=== PATIENT | female | born 1980 | race Two or more races ===

== ENCOUNTER 2018-07-21 08:27 | Emergency (ER) | payer MEDICAID ==
[~2018-07-21] VITALS: Ht 152.4 cm; Wt 75.9 kg
--- NOTE | 2018-07-21 08:53 | NUR ---
JOSE MODI AT BEDSIDE.
--- NOTE | 2018-07-21 08:54 | NUR ---
PT TO ROOM 16 W/ C/O HAVING A MIGRAINE LATELY AND BEING DX WITH A BRAIN TUMOR IN 2013. ALSO STATES SHE IS GOING THROUGH WITHDRAWAL FROM ETOH AND IS SCARED, PT STATES SHE HAS BEEN UNABLE TO KEEP ANYTHING DOWN. ETOH ABUSE. DRINKS ETOH DAILY LAST USE YESTERDAY. PT RESTING ON GURNEY. WARM BLANKET PROVIDED. MONITORS APPLIED.
[2018-07-21] MEDS ORDERED: TRAZ-137 PO (08:56)
[2018-07-21] MEDS ORDERED: ONDANSETRON ODT 4 MG PO ONE (09:00)
[2018-07-21] MEDS ORDERED: LORazepam 1MG TABLET PO ONE (09:00)
[2018-07-21] MEDS ORDERED: LORazepam 1MG TABLET ONE (09:02)
[2018-07-21] MEDS ORDERED: ONDANSETRON ODT 4 MG ONE (09:02)
[2018-07-21 09:19] LABS: MICROSCOPIC AUTO
[2018-07-21 09:20] LABS: CULTURE INDICATED? YES
[2018-07-21 09:24] LABS: ALANINE AMINOTRANSFERASE 64 U/L (12-78); ALBUMIN 3.4 g/dL (3.4-5.0); ANION GAP 7 mmol/L (5-15); CHLORIDE 104 mmol/L (98-107); CREATININE 0.68 mg/dL (0.55-1.02)
[2018-07-21 09:29] LABS: ALKALINE PHOSPHATASE 110 U/L (45-117); BILIRUBIN,TOTAL 1.4 mg/dL (0.2-1.0); TOTAL PROTEIN 7.7 g/dL (6.4-8.2)
[2018-07-21 09:33] LABS: MEAN CORPUSCULAR HEMOGLOBIN 23.5 pg (27.0-34.8); MEAN CORPUSCULAR HGB CONC 31.5 g/dL (32.4-35.8); MEAN CORPUSCULAR VOLUME 74.4 fL (80-100); MEAN PLATELET VOLUME 7.7 fL (7.4-10.4); PLATELET COUNT 339 x10^3/uL (130-400); RED BLOOD COUNT 4.03 x10^6/uL (3.82-5.3); RED CELL DISTRIBUTION WIDTH 27.8 % (9.6-15.2)
[2018-07-21 09:55] LABS: BASOPHILS # (AUTO) 0.01 x10^3/uL (0-0.1); BASOPHILS % (AUTO) 0 % (0-1); EOSINOPHILS # (AUTO) 0.03 x10^3/uL (0-0.4); EOSINOPHILS % (AUTO) 0 % (1-7); LYMPHOCYTES % (AUTO) 24 % (22-44); MD MORPH REVIEW ONLY; MONOCYTES # (AUTO) 0.44 x10^3/uL (0.2-0.8); MONOCYTES % (AUTO) 7 % (2-9); NEUTROPHILS % (AUTO) 68 % (42-75)
[2018-07-21 09:56] LABS: <PLATELET ESTIMATE> ADEQUATE; <PLT MORPHOLOGY> NORMAL PLT MORPH; MICROCYTOSIS 1+; POLYCHROMASIA 1+
[2018-07-21 09:58] LABS: ANISOCYTOSIS 1+; HYPOCHROMIA 2+
--- NOTE | 2018-07-21 09:59 | NUR ---
PT RESTING ON GURNEY. NADN. [place].
--- NOTE | 2018-07-21 10:01 | NUR ---
PT CHART REVIEWED AND PLACED FOR RECHECK.
[2018-07-21 10:28] VITALS: BP 137/52
--- NOTE | 2018-07-21 10:29 | NUR ---
PT RESTING ON GURNEY. NADN. [place].
--- NOTE | 2018-07-21 10:43 | NUR ---
MD at bedside. Education provided regarding need for ad copy writer. Patient expressed understanding. Follow up materials and information about primary care office provided. Patient up for discharge.
== END 2018-07-21 11:12 | disposition home or self-care (01) ==
LOC: ED 10:15
DX: K29.20 Alcoholic gastritis without bleeding (principal); F10.20 Alcohol dependence, uncomplicated; R10.84 Generalized abdominal pain; R11.2 Nausea with vomiting, unspecified; D64.9 Anemia, unspecified; N39.0 Urinary tract infection, site not specified; R51 Headache
CPT/HCPCS: 36415; 74021; 80053; 81001; 83690; 84703; 85025; 87086; 99284; Q0162

== ENCOUNTER 2018-08-29 07:05 | Inpatient (IN) | payer MEDICAID ==
[~2018-08-29] VITALS: Ht 152.4 cm; Wt 74.6 kg
[~2018-08-29 07:05] MED LIST: TRAZ-137 PO
--- NOTE | 2018-08-29 07:56 | NUR ---
[facility]
--- NOTE | 2018-08-29 08:27 | NUR ---
Pt presents from home for ETOH withdrawal. Pt states nomrally drink 6+ [employer] malt liqour. Pt states last drink at 2100 last night. Pt shaking and lightheaded at this time. Pt states nausea and vomiting x week+
[2018-08-29] MEDS ORDERED: LORazepam 2 MG/ML, 1ML IVPush ONE (08:30)
[2018-08-29] MEDS ORDERED: ONDANSETRON 2MG/ML, 2ML IVPush ONE (08:30)
[2018-08-29] MEDS ORDERED: THIAMINE 100 MG in SODIUM CHLORIDE 0.9% 50 ML IVPB ONE (08:30)
[2018-08-29] MEDS ORDERED: SODIUM CHLORIDE 0.9% 1,000ML IVBOLUS ONE (08:30)
[2018-08-29] MEDS ORDERED: SODIUM CHLORIDE FLUSH 10ML SYR IVF ONE (08:30)
[2018-08-29] MEDS ORDERED: ONDANSETRON 2MG/ML, 2ML ONE (08:31)
[2018-08-29] MEDS ORDERED: LORazepam 2 MG/ML, 1ML ONE (08:32)
[2018-08-29 08:47] LABS: MEAN CORPUSCULAR HEMOGLOBIN 24.6 pg (27.0-34.8); MEAN CORPUSCULAR HGB CONC 31.4 g/dL (32.4-35.8); MEAN CORPUSCULAR VOLUME 78.1 fL (80-100); MEAN PLATELET VOLUME 6.8 fL (7.4-10.4); PLATELET COUNT 267 x10^3/uL (130-400); RED BLOOD COUNT 3.68 x10^6/uL (3.82-5.3); RED CELL DISTRIBUTION WIDTH 27.4 % (9.6-15.2)
[2018-08-29 08:48] LABS: ALBUMIN 3.2 g/dL (3.4-5.0); ANION GAP 9 mmol/L (5-15); CALCIUM 8.1 mg/dL (8.5-10.1); CHLORIDE 105 mmol/L (98-107)
[2018-08-29 08:54] LABS: ALANINE AMINOTRANSFERASE 69 U/L (12-78); ALKALINE PHOSPHATASE 110 U/L (45-117); BILIRUBIN,TOTAL 1.1 mg/dL (0.2-1.0); CREATININE 0.79 mg/dL (0.55-1.02); TOTAL PROTEIN 7.5 g/dL (6.4-8.2)
[2018-08-29 08:59] LABS: MD YES
[2018-08-29 09:06] LABS: LYMPH#(MANUAL) 0.78 x10^3/uL (1-3.4); LYMPHS% (MANUAL) 19 % (22-44); MONOS#(MANUAL) 0.21 x10^3/uL (0.3-2.7); MONOS% (MANUAL) 5 % (2-9); SEG#(MANUAL) 3.12 x10^3/uL (1.8-6.8); SEGS% (MANUAL) 76 % (42-75)
[2018-08-29 09:07] LABS: <PLATELET ESTIMATE> ADEQUATE; <PLT MORPHOLOGY> NORMAL PLT MORPH; ANISOCYTOSIS 1+; HYPOCHROMIA 2+; MICROCYTOSIS 1+; POLYCHROMASIA 1+; TARGET CELLS 1+
[2018-08-29] MEDS ORDERED: SODIUM CHLORIDE 0.9% 1,000 ML IV ONE (10:09)
--- NOTE | 2018-08-29 10:16 | NUR ---
PT WITH [place], DENIED BY [employer] AT [facility] AND [facility] AT [facility]
[2018-08-29] MEDS ORDERED: ONDANSETRON ODT 4 MG PO PRN (10:30)
[2018-08-29] MEDS ORDERED: ONDANSETRON 2MG/ML, 2ML IVPush PRN (10:30)
[2018-08-29] MEDS ORDERED: POLYETHYLENE GLYCOL 17 GM PACKET PO PRN (10:30)
[2018-08-29] MEDS ORDERED: LORazepam 1MG TABLET PO PRN ×3 (10:30)
[2018-08-29] MEDS ORDERED: LABETALOL 5 MG/ML SYRINGE IV PRN (10:30)
[2018-08-29] MEDS ORDERED: LORazepam 2 MG/ML, 1ML IV PRN ×5 (10:30)
[2018-08-29] MEDS ORDERED: SODIUM CHLORIDE FLUSH 10ML SYR IVF PRN (10:30)
[2018-08-29 10:53] LABS: FREE T4 (FREE THYROXINE) 0.7 ng/dL (0.76-1.46)
[2018-08-29 11:00] VITALS: BP 120/71
[2018-08-29] MEDS: ENOXAPARIN 40 MG/0.4 ML SQ SCH (11:50)
[2018-08-29 14:00] VITALS: BP 146/87
[2018-08-29 21:00] VITALS: BP 128/85
[2018-08-29] MEDS: LORazepam 0.5MG TABLET PO PRN (21:19)
[2018-08-30 01:07] VITALS: BP 126/84
[2018-08-30] MEDS: LORazepam 0.5MG TABLET PO PRN ×2 (05:23→10:49)
[2018-08-30 06:19] LABS: CHLORIDE 107 mmol/L (98-107)
[2018-08-30 06:21] LABS: MEAN CORPUSCULAR HEMOGLOBIN 24.8 pg (27.0-34.8); MEAN CORPUSCULAR HGB CONC 30.9 g/dL (32.4-35.8); MEAN CORPUSCULAR VOLUME 80.3 fL (80-100); MEAN PLATELET VOLUME 7.5 fL (7.4-10.4); PLATELET COUNT 246 x10^3/uL (130-400); RED BLOOD COUNT 3.53 x10^6/uL (3.82-5.3); RED CELL DISTRIBUTION WIDTH 27.5 % (9.6-15.2)
[2018-08-30 06:34] LABS: ALANINE AMINOTRANSFERASE 67 U/L (12-78); ALBUMIN 2.8 g/dL (3.4-5.0); ALKALINE PHOSPHATASE 108 U/L (45-117); ANION GAP 7 mmol/L (5-15); BILIRUBIN,TOTAL 0.9 mg/dL (0.2-1.0); CALCIUM 7.4 mg/dL (8.5-10.1); CREATININE 0.71 mg/dL (0.55-1.02); TOTAL PROTEIN 6.8 g/dL (6.4-8.2)
[2018-08-30 06:42] LABS: MD YES
[2018-08-30 06:44] LABS: BASOS#(MANUAL) 0.04 x10^3/uL (0-0.1); BASOS% (MANUAL) 1 % (0-1); LYMPH#(MANUAL) 1.42 x10^3/uL (1-3.4); LYMPHS% (MANUAL) 33 % (22-44); MONOS#(MANUAL) 0.26 x10^3/uL (0.3-2.7); MONOS% (MANUAL) 6 % (2-9); SEG#(MANUAL) 2.58 x10^3/uL (1.8-6.8); SEGS% (MANUAL) 60 % (42-75)
[2018-08-30 06:45] LABS: <PLATELET ESTIMATE> ADEQUATE; <PLT MORPHOLOGY> NORMAL PLT MORPH; ANISOCYTOSIS 1+; HYPOCHROMIA 2+; MICROCYTOSIS 1+; POLYCHROMASIA 1+
[2018-08-30] MEDS ORDERED: POTASSIUM CHLORIDE 20 MEQ TAB.ER.PRT PO ONE ×3 (07:00→14:30)
[2018-08-30 07:32] VITALS: BP 126/84
[2018-08-30] MEDS ORDERED: MAGNESIUM SULFATE PMX 2GM/50ML 50 ML IV ONE (08:30)
[2018-08-30] MEDS: SENNA/DOCUSATE TABLET PO SCH (09:11)
[2018-08-30] MEDS: IRON SUCROSE COMPLEX 100MG/5ML IV SCH (09:11)
[2018-08-30] MEDS: ENOXAPARIN 40 MG/0.4 ML SQ SCH (11:39)
[2018-08-30 12:05] VITALS: BP 145/83
[2018-08-30] MEDS: LORazepam 1MG TABLET PO PRN (17:46)
[2018-08-30] MEDS: TEMAZEPAM 15 MG CAPSULE PO PRN (20:50)
[2018-08-30 20:53] VITALS: BP 115/77
[2018-08-31 01:24] VITALS: BP 103/68
[2018-08-31 07:13] VITALS: BP 117/81
[2018-08-31] MEDS: SENNA/DOCUSATE TABLET PO SCH (08:07)
[2018-08-31] MEDS: IRON SUCROSE COMPLEX 100MG/5ML IV SCH (08:40)
[2018-08-31] MEDS: LORazepam 1MG TABLET PO PRN (08:40)
[2018-08-31 08:42] LABS: MEAN CORPUSCULAR HEMOGLOBIN 24.5 pg (27.0-34.8); MEAN CORPUSCULAR HGB CONC 30.3 g/dL (32.4-35.8); MEAN CORPUSCULAR VOLUME 80.7 fL (80-100); MEAN PLATELET VOLUME 7.3 fL (7.4-10.4); PLATELET COUNT 234 x10^3/uL (130-400); RED BLOOD COUNT 3.44 x10^6/uL (3.82-5.3); RED CELL DISTRIBUTION WIDTH 26.9 % (9.6-15.2)
[2018-08-31 08:51] LABS: ALBUMIN 2.7 g/dL (3.4-5.0); ANION GAP 4 mmol/L (5-15); CALCIUM 7.6 mg/dL (8.5-10.1); CHLORIDE 110 mmol/L (98-107)
[2018-08-31 08:55] LABS: ALANINE AMINOTRANSFERASE 78 U/L (12-78); ALKALINE PHOSPHATASE 100 U/L (45-117); BILIRUBIN,TOTAL 0.5 mg/dL (0.2-1.0); CREATININE 0.64 mg/dL (0.55-1.02); TOTAL PROTEIN 6.4 g/dL (6.4-8.2)
[2018-08-31 09:35] LABS: BASOPHILS % (AUTO) 0 % (0-1); EOSINOPHILS # (AUTO) 0.04 x10^3/uL (0-0.4); EOSINOPHILS % (AUTO) 1 % (1-7); LYMPHOCYTES # (AUTO) 1.45 x10^3/uL (1-3.4); LYMPHOCYTES % (AUTO) 25 % (22-44); MD SCAN; MONOCYTES # (AUTO) 0.65 x10^3/uL (0.2-0.8); MONOCYTES % (AUTO) 11 % (2-9); NEUTROPHILS # (AUTO) 3.64 x10^3/uL (1.8-6.8); NEUTROPHILS % (AUTO) 63 % (42-75)
[2018-08-31] MEDS: ENOXAPARIN 40 MG/0.4 ML SQ SCH (11:44)
[2018-08-31 12:32] VITALS: BP 112/75
[2018-08-31 19:52] VITALS: BP 126/85
[2018-08-31] MEDS: TEMAZEPAM 15 MG CAPSULE PO PRN (22:23)
[2018-09-01 02:43] VITALS: BP 107/70
[2018-09-01 05:34] LABS: MEAN CORPUSCULAR HEMOGLOBIN 25.3 pg (27.0-34.8); MEAN CORPUSCULAR HGB CONC 30.7 g/dL (32.4-35.8); MEAN CORPUSCULAR VOLUME 82.2 fL (80-100); MEAN PLATELET VOLUME 8.1 fL (7.4-10.4); PLATELET COUNT 240 x10^3/uL (130-400); RED BLOOD COUNT 3.49 x10^6/uL (3.82-5.3); RED CELL DISTRIBUTION WIDTH 26.7 % (9.6-15.2)
[2018-09-01 05:37] LABS: ALBUMIN 2.6 g/dL (3.4-5.0); CHLORIDE 110 mmol/L (98-107)
[2018-09-01 05:43] LABS: ALANINE AMINOTRANSFERASE 70 U/L (12-78); ALKALINE PHOSPHATASE 107 U/L (45-117); ANION GAP 6 mmol/L (5-15); BILIRUBIN,TOTAL 0.4 mg/dL (0.2-1.0); CALCIUM 8.1 mg/dL (8.5-10.1); CREATININE 0.64 mg/dL (0.55-1.02); TOTAL PROTEIN 6.4 g/dL (6.4-8.2)
[2018-09-01 06:32] LABS: MD YES
[2018-09-01 06:34] LABS: <PLATELET ESTIMATE> ADEQUATE; <PLT MORPHOLOGY> NORMAL PLT MORPH; ANISOCYTOSIS 1+; HYPOCHROMIA 1+; LYMPH#(MANUAL) 1.38 x10^3/uL (1-3.4); LYMPHS% (MANUAL) 17 % (22-44); MICROCYTOSIS 1+; MONOS#(MANUAL) 0.97 x10^3/uL (0.3-2.7); MONOS% (MANUAL) 12 % (2-9); POLYCHROMASIA 1+; SEG#(MANUAL) 5.75 x10^3/uL (1.8-6.8); SEGS% (MANUAL) 71 % (42-75)
[2018-09-01] MEDS ORDERED: NEUTRA PHOS K 250 MG TABLET PO SCH (09:00)
== END 2018-09-01 08:11 | disposition left against medical advice (07) | DRG 894 ==
LOC: ED 09:18 → EDIP 10:25 → 4EST 10:54
PROVIDERS: ADMIT Hospitalist; ATTEND Hospitalist
DX: F10.239 Alcohol dependence with withdrawal, unspecified (principal); E87.6 Hypokalemia; D50.0 Iron deficiency anemia secondary to blood loss (chronic); F17.200 Nicotine dependence, unspecified, uncomplicated; F41.9 Anxiety disorder, unspecified; Z53.21 Procedure and treatment not carried out due to patient leaving prior to being seen by health care provider; G43.909 Migraine, unspecified, not intractable, without status migrainosus; R74.0 Nonspecific elevation of levels of transaminase and lactic acid dehydrogenase [LDH]; Z98.84 Bariatric surgery status
CPT/HCPCS: 36415; 80053; 80307; 82728; 83540; 83550; 83690; 83735; 84100; 84439; 84443; 84703; 85025; 93005; 96361; 96374; 96375; 99285; G0378; J1650; J1756; J2405; J3411; Q0162; J2060; J3475; J7030

== ENCOUNTER 2018-10-13 04:57 | Inpatient (IN) | payer MEDICAID ==
[~2018-10-13] VITALS: Ht 152.4 cm; Wt 83.2 kg
--- NOTE | 2018-10-13 05:11 | NUR ---
JENNIFER LENZ WITH REPORTS OF A SEIZURE AROUND 0415 THIS MORNING THAT LASTED APPROX 15-20 SECONDS, WITNESSED BY BOYFRIEND. BF REPORTS PT WAS IN BED AND DID NOT FALL OR HIT HER HEAD. PT HAS HX OF ETOH ABUSE AND REPORTS THAT SHE HAS SEIZUES WHEN SHE IS WITHDRAWLING FROM ALCOHOL. PT ALERT AND ORIENTED X [address] PT ATTACHED TO ALL MONITOR, CALL LIGHT WITHIN REACH. SEIZURE PRECAUTIONS IN PLACE.
[2018-10-13] MEDS ORDERED: LORazepam 2 MG/ML, 1ML ONE ×2 (05:18→07:32)
[2018-10-13] MEDS ORDERED: THIAMINE 100 MG/ML, 2ML ONE (05:19)
[2018-10-13] MEDS ORDERED: SODIUM CHLORIDE FLUSH 10ML SYR IVF ONE (05:30)
[2018-10-13] MEDS ORDERED: LORazepam 2 MG/ML, 1ML IVPush ONE ×2 (05:30→07:00)
[2018-10-13] MEDS ORDERED: THIAMINE 100 MG/ML, 2ML IM ONE (05:30)
[2018-10-13 06:09] LABS: ALBUMIN 3.4 g/dL (3.4-5.0); ANION GAP 13 mmol/L (5-15); CALCIUM 8.2 mg/dL (8.5-10.1); CHLORIDE 104 mmol/L (98-107)
--- NOTE | 2018-10-13 06:09 | NUR ---
pt resting on gurney. pt is A+O to person, place and situation at this time. boyfriend at bedside
[2018-10-13 06:15] LABS: ALANINE AMINOTRANSFERASE 123 U/L (12-78); ALKALINE PHOSPHATASE 145 U/L (45-117); BILIRUBIN,TOTAL 1.6 mg/dL (0.2-1.0); CREATININE 0.82 mg/dL (0.55-1.02); MEAN CORPUSCULAR HEMOGLOBIN 27.2 pg (27.0-34.8); MEAN CORPUSCULAR HGB CONC 32.2 g/dL (32.4-35.8); MEAN CORPUSCULAR VOLUME 84.5 fL (80-100); MEAN PLATELET VOLUME 7.4 fL (7.4-10.4); PLATELET COUNT 202 x10^3/uL (130-400); RED BLOOD COUNT 3.87 x10^6/uL (3.82-5.3); RED CELL DISTRIBUTION WIDTH 28.5 % (9.6-15.2); TOTAL PROTEIN 7.9 g/dL (6.4-8.2)
[2018-10-13 06:33] LABS: BASOPHILS % (AUTO) 0 % (0-1); EOSINOPHILS # (AUTO) 0.01 x10^3/uL (0-0.4); EOSINOPHILS % (AUTO) 0 % (1-7); LYMPHOCYTES # (AUTO) 0.71 x10^3/uL (1-3.4); LYMPHOCYTES % (AUTO) 19 % (22-44); MD SCAN; MONOCYTES # (AUTO) 0.46 x10^3/uL (0.2-0.8); MONOCYTES % (AUTO) 12 % (2-9); NEUTROPHILS # (AUTO) 2.62 x10^3/uL (1.8-6.8); NEUTROPHILS % (AUTO) 69 % (42-75)
[2018-10-13] MEDS ORDERED: MAGNESIUM SULFATE 1 GM, FOLIC ACID 1 MG, MVI ADULT 10 ML in SODIUM CHLORIDE 0.9% 1,000 ML IV ONE (07:00)
--- NOTE | 2018-10-13 07:07 | NUR ---
report given to mary yin
--- NOTE | 2018-10-13 07:37 | NUR ---
GIVEN ATIVAN IV 2MG BEFORE TRANSFER PT TO FLOOR PT'S VSS STABLE HR 80'S RA SATS 99% AFTER ATIVAN IV.. PT STATED FEELS BETTER NOW GIVEN ICE FOR PT PT'S REQUEST GIVEN REPORT TO MARI DURAN
[2018-10-13] MEDS ORDERED: PANTOPROZOLE 40MG TABLET PO SCH (09:30)
[2018-10-13] MEDS ORDERED: LORazepam 0.5MG TABLET PO PRN (09:30)
[2018-10-13] MEDS ORDERED: ACETAMINOPHEN 325 MG TABLET PO PRN (09:30)
[2018-10-13] MEDS ORDERED: NICOTINE 14MG/24 HR PATCH.TD24 TD SCH (09:30)
[2018-10-13] MEDS ORDERED: DIPHENHYDRAMINE 50 MG CAPSULE PO PRN (09:30)
[2018-10-13] MEDS ORDERED: LORazepam 1MG TABLET PO PRN ×3 (09:30)
[2018-10-13] MEDS ORDERED: LORazepam 2 MG/ML, 1ML IV PRN ×5 (09:30)
[2018-10-13] MEDS ORDERED: ONDANSETRON ODT 4 MG PO PRN (09:30)
[2018-10-13] MEDS ORDERED: THIAMINE 100 MG in SODIUM CHLORIDE 0.9% 50 ML IV SCH (09:30)
[2018-10-13] MEDS ORDERED: ENOXAPARIN 40 MG/0.4 ML SQ SCH (09:30)
[2018-10-13 12:58] VITALS: BP 137/88
[2018-10-13] MEDS: NS + 20MEQ KCL 1,000 ML IV SCH (14:40)
[2018-10-13 15:41] LABS: % IRON SATURATION 30 % (20-55); IRON LEVEL 67 mcg/dL (50-170); TOTAL IRON BINDING CAPACITY 226 mcg/dL (250-450)
[2018-10-13 20:42] VITALS: BP 130/89
[2018-10-13] MEDS ORDERED: LACTULOSE 10 GM/15 ML UDC PO SCH (21:00)
[2018-10-13] MEDS ORDERED: BACLOFEN 10 MG TABLET PO SCH (21:00)
[2018-10-13 22:24] LABS: OCCULT BLOOD NEGATIVE (NEGATIVE)
[2018-10-14 01:28] LABS: AMPHETAMINE SCREEN, URINE Negative (Negative); BARBITURATE SCREEN, URINE Negative (Negative); BENZODIAZEPINE SCREEN, URINE Negative (Negative); CANNABINOID SCREEN, URINE Positive (Negative); COCAINE SCREEN, URINE Negative (Negative); METHADONE SCREEN, URINE Negative (Negative); OPIATE SCREEN, URINE Negative (Negative)
[2018-10-14 02:15] VITALS: BP 136/72
[2018-10-14] MEDS: NS + 20MEQ KCL 1,000 ML IV SCH (03:57)
[2018-10-14 05:54] LABS: INTERNATIONAL NORMALIZED RATIO 1.11 (0.93-1.1); PROTHROMBIN TIME 11.6 Seconds (9.6-11.5)
[2018-10-14 05:55] LABS: MEAN CORPUSCULAR HEMOGLOBIN 26.8 pg (27.0-34.8); MEAN CORPUSCULAR HGB CONC 31.4 g/dL (32.4-35.8); MEAN CORPUSCULAR VOLUME 85.2 fL (80-100); MEAN PLATELET VOLUME 7.8 fL (7.4-10.4); PLATELET COUNT 170 x10^3/uL (130-400)
[2018-10-14 05:59] LABS: ALBUMIN 2.9 g/dL (3.4-5.0); ANION GAP 7 mmol/L (5-15); CALCIUM 7.7 mg/dL (8.5-10.1); CHLORIDE 107 mmol/L (98-107)
[2018-10-14 06:10] LABS: ALANINE AMINOTRANSFERASE 115 U/L (12-78); ALKALINE PHOSPHATASE 140 U/L (45-117); BILIRUBIN,TOTAL 1.6 mg/dL (0.2-1.0); CREATININE 0.68 mg/dL (0.55-1.02); TOTAL PROTEIN 6.9 g/dL (6.4-8.2)
[2018-10-14 06:17] LABS: BASOPHILS # (AUTO) 0.02 x10^3/uL (0-0.1); BASOPHILS % (AUTO) 1 % (0-1); EOSINOPHILS # (AUTO) 0.03 x10^3/uL (0-0.4); EOSINOPHILS % (AUTO) 1 % (1-7); LYMPHOCYTES # (AUTO) 1.35 x10^3/uL (1-3.4); LYMPHOCYTES % (AUTO) 31 % (22-44); MD MORPH REVIEW ONLY; MONOCYTES # (AUTO) 0.55 x10^3/uL (0.2-0.8); MONOCYTES % (AUTO) 13 % (2-9); NEUTROPHILS # (AUTO) 2.34 x10^3/uL (1.8-6.8); NEUTROPHILS % (AUTO) 55 % (42-75)
[2018-10-14 06:18] LABS: ANISOCYTOSIS 2+; HYPOCHROMIA 1+; MICROCYTOSIS 1+; POLYCHROMASIA 1+
[2018-10-14 06:19] LABS: TARGET CELLS 1+
[2018-10-14 06:20] LABS: <PLATELET ESTIMATE> ADEQUATE; <PLT MORPHOLOGY> NORMAL PLT MORPH
[2018-10-14] MEDS ORDERED: POTASSIUM CHLORIDE 20 MEQ, MAGNESIUM SULFATE 1 GM, MVI ADULT 10 ML, THIAMINE 200 MG, FO... IV SCH (07:30)
[2018-10-14] MEDS ORDERED: SENNA/DOCUSATE TABLET PO SCH (09:00)
[2018-10-14] MEDS ORDERED: POTASSIUM PHOSPHATE 44 MEQ in SODIUM CHLORIDE 0.9% 500 ML IV ONE (09:00)
[2018-10-14] MEDS ORDERED: THIAMINE 100MG TABLET PO SCH (09:00)
[2018-10-14] MEDS ORDERED: POTASSIUM CHLORIDE 20 MEQ TAB.ER.PRT PO SCH (17:00)
[2018-10-15] MEDS ORDERED: THIAMINE IV SCH (09:00)
[2018-10-15] MEDS ORDERED: POTASSIUM CHLORIDE IV SCH (09:00)
[2018-10-15] MEDS ORDERED: MAGNESIUM SULFATE IV SCH (09:00)
[2018-10-15] MEDS ORDERED: [UNRECOGNIZED DRUG - OTHER] IV SCH (09:00)
[2018-10-15] MEDS ORDERED: MVI ADULT IV SCH (09:00)
== END 2018-10-14 09:17 | disposition left against medical advice (07) | DRG 55 ==
LOC: ED 05:10 → EDIP 06:08 → 4WST 07:46
PROVIDERS: ADMIT Internal Medicine; ATTEND Internal Medicine
DX: D32.0 Benign neoplasm of cerebral meninges (principal); G40.89 Other seizures; E87.2 Acidosis; F10.239 Alcohol dependence with withdrawal, unspecified; D64.9 Anemia, unspecified; G93.9 Disorder of brain, unspecified; E66.9 Obesity, unspecified; Z68.35 Body mass index [BMI] 35.0-35.9, adult; E83.39 Other disorders of phosphorus metabolism; E87.6 Hypokalemia; F17.210 Nicotine dependence, cigarettes, uncomplicated; I10 Essential (primary) hypertension; J44.9 Chronic obstructive pulmonary disease, unspecified; T73.0XXA Starvation, initial encounter; G43.909 Migraine, unspecified, not intractable, without status migrainosus; K70.10 Alcoholic hepatitis without ascites; Z86.011 Personal history of benign neoplasm of the brain; Z98.84 Bariatric surgery status
CPT/HCPCS: 36415; 70450; 71045; 76700; 80053; 80307; 82140; 82272; 83540; 83550; 83605; 83690; 83735; 84100; 84443; 84703; 85025; 85610; 93005; 96372; 96374; 96375; G0378; J1650; J3411; J3475; J3480; J2060; J7030